=== PATIENT | female | born 1985 | race Caucasian/White ===

== ENCOUNTER 2017-06-02 23:27 | Inpatient (IN) | payer OTHER ==
[~2017-06-02] VITALS: Ht 162.6 cm; Wt 75.3 kg
[~2017-06-02 23:27] MED LIST: PRENA1 SOFTGEL1 EACH PO
== END 2017-06-06 13:27 | disposition home or self-care (01) | DRG 775 ==
LOC: LDR 23:27 → OB/GYN 23:27
PROC: 4A1HXCZ Monitoring of Products of Conception, Cardiac Rate, External Approach (ICD-10-PCS; 2017-06-02)
PROC: 10E0XZZ Delivery of Products of Conception, External Approach (ICD-10-PCS; principal; 2017-06-03)
PROC: 4A033R1 Measurement of Arterial Saturation, Peripheral, Percutaneous Approach (ICD-10-PCS; 2017-06-03)
DX: O99.824 Streptococcus B carrier state complicating childbirth (principal); Z37.0 Single live birth; Z3A.38 38 weeks gestation of pregnancy